=== PATIENT | male | born 1950 | race Caucasian/White ===

== ENCOUNTER → 2021-06-22 | Outpatient (CLI) | payer MEDICARE ==
--- NOTE | 2021-06-22 10:50 | US ---
EXAMINATION TYPE: US duplex aorta DATE OF EXAM: 06/22/2021 COMPARISON: NONE CLINICAL HISTORY: Z13.6 SCREENING FOR CARDIOVASCULAR DISORDER. screening AAA, smoker EXAM MEASUREMENTS: Abdominal Aorta: Proximal: 2.8 x 2.0cm Mid: 2.3 x 2.2cm Distal: 1.9 x 2.2cm Bifurcation: 1.0cm 1.1cm Moderate peripheral diffuse atherosclerotic changes on scanning the aorta that is successfully visual ized through the bifurcation IMPRESSION: No ultrasound evidence for greater than 3.0 cm AAA
== END | disposition home or self-care (01) ==
LOC: RADUSWWP 08:37
PROVIDERS: ATTEND Family Medicine
DX: I71.4 Abdominal aortic aneurysm, without rupture (principal)
CPT/HCPCS: 93979

== ENCOUNTER → 2021-06-29 | Outpatient (CLI) | payer MEDICARE ==
--- NOTE | 2021-06-29 11:19 | CT ---
EXAMINATION TYPE: CT iac wo con DATE OF EXAM: 06/29/2021 COMPARISON: None HISTORY: Right sided hearing loss CT DLP: 150.0mGycm Automated exposure control for dose reduction was used. FINDINGS: The external auditory canals are patent bilaterally the right-sided mastoid air cells are w ell-aerated. On the left the mastoid air cells demonstrate mild opacification. The middle ear ossicle s are symmetric and unremarkable. There is no evidence of suspicious surrounding soft tissue density to suggest cholesteatoma. The scutum is preserved bilaterally. The cochlea and the semicircular ca nals are symmetric and unremarkable. Vestibular aqueduct and internal carotid canal appear unremarka ble. Temporomandibular joints are maintained bilaterally. IMPRESSION: 1. Mild chronic left-sided mastoiditis.
== END | disposition home or self-care (01) ==
LOC: RADCTMAIN 10:47
PROVIDERS: ATTEND Otolaryngology
DX: H91.91 Unspecified hearing loss, right ear (principal); H70.12 Chronic mastoiditis, left ear
CPT/HCPCS: 70480

== ENCOUNTER 2023-11-12 12:54 | Emergency (ER) | payer MEDICARE ==
--- NOTE | 2023-11-12 13:19 | ED ---
General Adult HPI - General Chief complaint: Syncope Stated complaint: Near syncope Time Seen by Provider: 11/12/23 13:10 Source: patient, family, EMS, RN notes reviewed, old records reviewed Mode of arrival: EMS Limitations: no limitations - History of Present Illness Initial comments: This is a 73-year-old male presents to the emergency department stating he was at his grandsons high school graduation sitting on a hard plastic chair and he started getting lightheaded and according to his he slumped over and passed out for short period time. Once the healthcare provider on the scene got to him and aroused him a little bit he immediately became awake and he had no strokelike symptoms. Patient denies any headache patient denies numbness or weakness. Patient is chest pain difficulty breathing shortness of breath. Patient states he ate normally today. Patient denies any recent fever chills or cough or patient has any nausea vomiting diarrhea. Currently patient is asymptomatic - Related Data Home Medications Medication Instructions Recorded Confirmed Losartan/Hydrochlorothiazide 1 tab PO DAILY 10/12/21 11/12/23 [Losartan-Hctz 100-12.5 mg Tab] Omeprazole 20 mg PO DAILY 08/19/22 11/12/23 amLODIPine [Norvasc] 10 mg PO HS 08/19/22 11/12/23 Atorvastatin [Lipitor] 40 mg PO HS 08/25/22 11/12/23 Aspirin EC [Ecotrin Low Dose] 81 mg PO HS 11/12/23 11/12/23 Celecoxib [CeleBREX] 200 mg PO BID 11/12/23 11/12/23 Cholecalciferol (Vitamin D3) 50 mcg PO DAILY 11/12/23 11/12/23 [Vitamin D3 (50 Mcg = 2000 Iu)] Allergies Allergy/AdvReac Type Severity Reaction Status Date / Time No Known Allergies Allergy Verified 11/12/23 15:05 Review of Systems ROS Statement: Those systems with pertinent positive or pertinent negative responses have been documented in the HPI. ROS Other: All systems not noted in ROS Statement are negative. Past Medical History Past Medical History: COPD, Hyperlipidemia, Hypertension, Osteoarthritis (OA), Prostate Disorder Additional Past Medical History / Comment(s): sinus issues, fluid behind ear drums, History of Any Multi-Drug Resistant Organisms: None Reported Past Surgical History: Hernia Repair, Prostate Surgery, Tonsillectomy Additional Past Surgical History / Comment(s): septum surgery Past Anesthesia/Blood Transfusion Reactions: No Reported Reaction Past Psychological History: No Psychological Hx Reported Smoking Status: Current every day smoker - Past Family History Father Family Medical History: Cancer Additional Family Medical History / Comment(s): lung cancer General Exam - General Exam Comments Initial Comments: GENERAL: Patient is well-developed and well-nourished. Patient is nontoxic and well- hydrated and is in no acute distress. ENT: Neck is soft and supple. No significant lymphadenopathy is noted. Oropharynx is clear. Moist mucous membranes. Neck has full range of motion without eliciting any pain. EYES: The sclera were anicteric and conjunctiva were pink and moist. Extraocular movements were intact and pupils were equal round and reactive to light. Eyelids were unremarkable. PULMONARY: Unlabored respirations. Good breath sounds bilaterally. No audible rales rhonchi or wheezing was noted. CARDIOVASCULAR: There is a regular rate and rhythm without any murmurs gallops or rubs. ABDOMEN: Soft and nontender with normal bowel sounds. SKIN: Skin is clear with no lesions or rashes and otherwise unremarkable. NEUROLOGIC: Patient is alert and oriented x3. Cranial nerves II through XII are grossly intact. Motor and sensory are also intact. Normal speech, volume and content. Symmetrical smile. MUSCULOSKELETAL: Normal extremities with adequate strength and full range of motion. LYMPHATICS: No significant lymphadenopathy is noted PSYCHIATRIC: Normal psychiatric evaluation. Limitations: no limitations Course Vital Signs 11/12/23 11/12/23 11/12/23 13:06 14:12 14:13 Pulse Rate 72 Respiratory 18 Rate Blood Pressure 123/75 122/74 106/72 O2 Sat by Pulse 98 Oximetry Medical Decision Making - Medical Decision Making EKG is interpreted by myself read EKG shows a sinus rhythm with occasional PVC at 73 bpm parables 170 QRS is 84 QT interval 388 QTc is 415. Patient EKG shows no ST segment ovation or depression. Was pt. sent in by a medical professional or institution (, PA, MACHINE SPECIALIST, urgent care, hospital, or retirement...) When possible be specific @ -No Did you speak to anyone other than the patient for history (EMS, parent, family, police, friend...)? What history was obtained from this source @ -No Did you review nursing and triage notes (agree or disagree)? Why? @ -I reviewed and agree with nursing and triage notes Were old charts reviewed (outside hosp., previous admission, EMS record, old EKG, old radiological studies, urgent care reports/EKG's, retirement records)? Report findings @ -I compared today's EKG to an old EKG there is no acute abnormality. Differential Diagnosis (chest pain, altered mental status, abdominal pain women, abdominal pain men, vaginal bleeding, weakness, fever, dyspnea, syncope, headache, dizziness, GI bleed, back pain, seizure, CVA, palpatations, mental health, musculoskeletal)? @ -Differential Syncope: Valvular disease, hypertrophic cardiomyopathy, pulmonary embolism, tamponade, tachycardia, bradycardia, ND, hypovolemia, hemorrhage, dissection, anemia, intracranial hemorrhage, seizure, hypoglycemia, carbon monoxide poisoning, this is not meant to be an all-inclusive list. EKG interpreted by me (3pts min.). @ -As above X-rays interpreted by me (1pt min.). @ -Chest x-ray shows a left-sided diaphragmatic hernia. CT interpreted by me (1pt min.). @ -None done U/S interpreted by me (1pt. min.). @ -None done What testing was considered but not performed or refused? (CT, X-rays, U/S, labs)? Why? @ -None What meds were considered but not given or refused? Why? @ -None Did you discuss the management of the patient with other professionals (professionals i.e. , PA, MACHINE SPECIALIST, lab, RT, psych nurse, marriage and family social worker, pet groomer, teacher, gifts officer, mental health case manager)? Give summary @ -No Was smoking cessation discussed for >3mins.? @ -No Was critical care preformed (if so, how long)? @ -No Were there social determinants of health that impacted care today? How? (Homelessness, low income, unemployed, alcoholism, drug addiction, transportation, low edu. Level, literacy, decrease access to med. care, [place] [facility], rehab)? @ -No Was there de-escalation of care discussed even if they declined (Discuss DNR or withdrawal of care, Hospice)? DNR status @ -No What co-morbidities impacted this encounter? (DM, HTN, Smoking, COPD, CAD, Cancer, CVA, ARF, Chemo, Hep., AIDS, mental health diagnosis, sleep apnea, morbid obesity)? @ -None Was patient admitted / discharged? Hospital course, mention meds given and route, prescriptions, significant lab abnormalities, going to OR and other pertinent info. @ -Patient was slightly dehydrated. Patient was mildly orthostatic in the emergency department. Patient received IV fluids in the emergency department. Undiagnosed new problem with uncertain prognosis? @ -No Drug Therapy requiring intensive monitoring for toxicity (Heparin, Nitro, Insulin, Cardizem)? @ -No Were any procedures done? @ -No Diagnosis/symptom? @ -Orthostatic hypotension Acute, or Chronic, or Acute on Chronic? @ -Acute Uncomplicated (without systemic symptoms) or Complicated (systemic symptoms)? @ -Complicated Side effects of treatment? @ -No Exacerbation, Progression, or Severe Exacerbation? @ -No Poses a threat to life or bodily function? How? (Chest pain, USA, ND, pneumonia, PE, COPD, DKA, ARF, appy, cholecystitis, CVA, Diverticulitis, Homicidal, Suicidal, threat to staff... and all critical care pts) @ -No - Lab Data Result diagrams: 11/12/23 14:10 11/12/23 14:10 Lab Results 11/12/23 11/12/23 11/12/23 Range/Units 14:10 14:10 14:10 WBC 10.4 (3.8-10.6) k/uL RBC 3.64 L (4.30-5.90) m/uL Hgb 10.6 L (13.0-17.5) gm/dL Hct 31.5 L (39.0-53.0) % MCV 86.7 (80.0-100.0) fL MCH 29.3 (25.0-35.0) pg MCHC 33.7 (31.0-37.0) g/dL RDW 13.5 (11.5-15.5) % Plt Count 358 (150-450) k/uL MPV 7.9 Neutrophils % 77 % Lymphocytes % 9 % Monocytes % 11 % Eosinophils % 1 % Basophils % 0 % Neutrophils # 8.0 H (1.3-7.7) k/uL Lymphocytes # 0.9 L (1.0-4.8) k/uL Monocytes # 1.2 H (0-1.0) k/uL Eosinophils # 0.1 (0-0.7) k/uL Basophils # 0.1 (0-0.2) k/uL PT 11.2 (10.0-12.5) sec INR 1.0 (<1.2) APTT 25.5 (22.0-30.0) sec Sodium 131 L (137-145) mmol/L Potassium 4.0 (3.5-5.1) mmol/L Chloride 102 (98-107) mmol/L Carbon Dioxide 22 (22-30) mmol/L Anion Gap 7 mmol/L BUN 23 H (9-20) mg/dL Creatinine 1.08 (0.66-1.25) mg/dL Est GFR (CKD-EPI)AfAm 77 (>60 ml/min/1.73 sqM) Est GFR (CKD-EPI)NonAf 67 (>60 ml/min/1.73 sqM) Glucose 110 H (74-99) mg/dL Calcium 8.3 L (8.4-10.2) mg/dL Magnesium 1.6 (1.6-2.3) mg/dL Total Bilirubin 0.6 (0.2-1.3) mg/dL AST 17 (17-59) U/L ALT 14 (4-49) U/L Alkaline Phosphatase 115 (38-126) U/L Troponin I (0.000-0.034) ng/mL Total Protein 6.0 L (6.3-8.2) g/dL Albumin 2.9 L (3.5-5.0) g/dL 11/12/23 Range/Units 14:10 WBC (3.8-10.6) k/uL RBC (4.30-5.90) m/uL Hgb (13.0-17.5) gm/dL Hct (39.0-53.0) % MCV (80.0-100.0) fL MCH (25.0-35.0) pg MCHC (31.0-37.0) g/dL RDW (11.5-15.5) % Plt Count (150-450) k/uL MPV Neutrophils % % Lymphocytes % % Monocytes % % Eosinophils % % Basophils % % Neutrophils # (1.3-7.7) k/uL Lymphocytes # (1.0-4.8) k/uL Monocytes # (0-1.0) k/uL Eosinophils # (0-0.7) k/uL Basophils # (0-0.2) k/uL PT (10.0-12.5) sec INR (<1.2) APTT (22.0-30.0) sec Sodium (137-145) mmol/L Potassium (3.5-5.1) mmol/L Chloride (98-107) mmol/L Carbon Dioxide (22-30) mmol/L Anion Gap mmol/L BUN (9-20) mg/dL Creatinine (0.66-1.25) mg/dL Est GFR (CKD-EPI)AfAm (>60 ml/min/1.73 sqM) Est GFR (CKD-EPI)NonAf (>60 ml/min/1.73 sqM) Glucose (74-99) mg/dL Calcium (8.4-10.2) mg/dL Magnesium (1.6-2.3) mg/dL Total Bilirubin (0.2-1.3) mg/dL AST (17-59) U/L ALT (4-49) U/L Alkaline Phosphatase (38-126) U/L Troponin I <0.012 (0.000-0.034) ng/mL Total Protein (6.3-8.2) g/dL Albumin (3.5-5.0) g/dL Disposition Clinical Impression: Syncope due to orthostatic hypotension Disposition: HOME SELF-CARE Condition: Good Instructions (If sedation given, give patient instructions): Syncope (ED), Hypotension (ED) Is patient prescribed a controlled substance at d/c from ED?: No Referrals: Vinh Washburn DO [Primary Care Provider] - 1-2 days Time of Disposition: 14:49
[2023-11-12] MEDS: SODIUM CHLORIDE 0.9% 500 ML 500 ML IV STA (14:05)
[2023-11-12 14:35] LABS: Partial Thromboplastin Time 25.5 sec (22.0-30.0); Prothrombin Time 11.2 sec (10.0-12.5)
[2023-11-12 14:36] LABS: ALT 14 U/L (4-49); AST 17 U/L (17-59); African American GFR (CKD) 77 (>60 ml/min/1.73 sqM); Albumin 2.9 g/dL (3.5-5.0); Alkaline Phosphatase 115 U/L (38-126); Anion Gap 7 mmol/L; Blood Urea Nitrogen 23 mg/dL (9-20); Calcium 8.3 mg/dL (8.4-10.2); Carbon Dioxide 22 mmol/L (22-30); Chloride 102 mmol/L (98-107); Glucose 110 mg/dL (74-99); Magnesium 1.6 mg/dL (1.6-2.3); Non-African American GFR(CKD) 67 (>60 ml/min/1.73 sqM); Sodium 131 mmol/L (137-145); Total Bilirubin 0.6 mg/dL (0.2-1.3)
[2023-11-12 14:45] LABS: Basophils # (A) 0.1 k/uL (0-0.2); Basophils % (A) 0 %; Eosinophils # (A) 0.1 k/uL (0-0.7); Eosinophils % (A) 1 %; HCT 31.5 % (39.0-53.0); HGB 10.6 gm/dL (13.0-17.5); Lymphocytes # (A) 0.9 k/uL (1.0-4.8); Lymphocytes % (A) 9 %; MCH 29.3 pg (25.0-35.0); MCHC 33.7 g/dL (31.0-37.0); MCV 86.7 fL (80.0-100.0); Mean Platelet Volume 7.9; Monocytes # (A) 1.2 k/uL (0-1.0); Monocytes % (A) 11 %; Neutrophils % (A) 77 %; Platelet Count 358 k/uL (150-450); RBC 3.64 m/uL (4.30-5.90); RDW 13.5 % (11.5-15.5); WBC 10.4 k/uL (3.8-10.6)
--- NOTE | 2023-11-12 15:08 | XR ---
EXAMINATION TYPE: XR chest 2V DATE OF EXAM: 11/12/2023 2:40 PM CLINICAL INDICATION:Male, 73 years old with history of Chest Pain; H COMPARISON: Chest radiographs from 03/28/2018 TECHNIQUE: XR chest 2V Frontal and lateral views of the chest. FINDINGS: Lungs/Pleura: Opacity projecting over the right medial lung possibly representing diaphragmatic herni a. There is no evidence of pleural effusion, focal consolidation, or pneumothorax. Pulmonary vascularity: Unremarkable. Heart/mediastinum: Cardiomediastinal silhouette is unremarkable. Musculoskeletal: No acute osseous pathology. IMPRESSION: Consolidation changes of the right lower lung felt to represent diaphragm hernia. Consider cross-sect ional imaging for complete evaluation.
[2023-11-12 15:59] VITALS: BP 131/82; PULSE 78; RESP 16; TEMP 98.6
== END 2023-11-12 16:18 | disposition home or self-care (01) ==
LOC: EC 12:54
DX: I95.1 Orthostatic hypotension (principal); F17.200 Nicotine dependence, unspecified, uncomplicated
CPT/HCPCS: 36415; 71046; 80053; 83735; 84484; 85025; 85610; 85730; 93005; 99284

== ENCOUNTER → 2024-05-08 | Outpatient (CLI) | payer MEDICARE ==
--- NOTE | 2024-05-09 12:20 | CTL ---
EXAMINATION TYPE: CT Low Dose Lung DATE OF EXAM ORDERED: 05/09/2024 COMPARISON: Chest radiograph 11/12/2023 CLINICAL INDICATION: Male, 73 years old with history of Z12.2 LUNG CA SCREENING Z87.891 FORMER SMOKER ; [facility], personal hx of nicotine dependence 1/2 ppd X 55 years former smoker, hx COPD, Lung cancer scre ening, History of Smoking/tobacco use. TECHNIQUE: Low dose computed tomography scan was performed through the chest at 1 mm thick sections a nd reconstructed images in multiple planes at 1 mm and [address] DLP: 105.[address] CTDI: 2.6 mGy Automated exposure control for dose reduction was used. CT DIAGNOSTIC QUALITY: Satisfactory FINDINGS: Nodules: Left upper lobe 3 mm pulmonary nodule (series 6, image 12). Left lower lobe 3 mm pulmonary nodule (series 6, image 46). Right lower lobe 4.9 mm pulmonary nodule (series 6, image 40). Right midlung 3.7 lower pulmonary nodule (series 6, image 26). LUNGS: COPD: Severity: Minimal Fibrosis: Severity: None Lymph nodes: None Other findings: Large right anterior morganii hernia containing fat and colon. Linear atelectasis wit hin the right lower lobe. RIGHT PLEURAL SPACE: Effusion: None Calcification: None Thickening: None Pneumothorax: None LEFT PLEURAL SPACE: Effusion: None Calcification: None Thickening: None Pneumothorax: None HEART: Heart Size: Normal Coronary Calcification: Small Pericardial Effusion: Small OTHER FINDINGS: Upper abdomen: Left superior pole exophytic 3.3 cm cyst. Couple of small hypodense foci within the li blanca which are too small to characterize but likely represent cysts. Bony thorax: Multilevel degenerative disc disease. Supraclavicular region: None Other: Bilateral gynecomastia. Ectasia of the descending thoracic aorta measuring up to 3.4 cm. IMPRESSION: 1. Few pulmonary nodules measuring less than 5 mm. 2. Large right anterior morganii hernia containing colon and fat. 3. Ectasia of descending thoracic aorta measuring up to 3.[address] LUNG RAD AND CT CHEST RECOMMENDATION: Lung-Rad 2 Benign Appearance or Behavior: Continue annual sc reening with LDCT in 12 months. S Modifier (other clinically significant findings): S [facility], , 05/09/2024 12:18 PM
== END | disposition home or self-care (01) ==
LOC: RADCTMAIN 14:11
PROVIDERS: ATTEND Family Medicine
DX: Z12.2 Encounter for screening for malignant neoplasm of respiratory organs (principal); R91.8 Other nonspecific abnormal finding of lung field; I77.810 Thoracic aortic ectasia; Z87.891 Personal history of nicotine dependence
CPT/HCPCS: 71271

== ENCOUNTER → 2024-05-28 | Outpatient (CLI) | payer MEDICARE ==
--- NOTE | 2024-05-29 11:41 | XR ---
EXAMINATION TYPE: XR cervical spine comp DATE OF EXAM: 05/28/2024 3:46 PM INDICATION: Patient age:Male; 73 years old; Reason for study: M542 CERVICALGIA; [facility]. COMPARISON: None TECHNIQUE: The cervical spine was imaged in frontal, lateral, and bilateral oblique projections. FINDINGS: No acute fracture. Grade 1 anterolisthesis of C4 on C5. There are osteophytes noted throughout the ce rvical spine on the anterior and lateral aspects of the vertebral bodies. Multilevel disc space narro wing with endplate sclerosis of the lower cervical spine involving C5-C7. Multilevel facet arthropath y with at least mild bilateral neural foraminal stenosis at multilevel. Pedicles are intact. Soft ti ssues are within normal limits. IMPRESSION: 1. No fracture or dislocation. 2. Moderate degenerative disc disease changes of the cervical spine. 3. Grade 1 anterolisthesis of C4 on C5. [facility], , 05/29/2024 11:39 AM
== END | disposition home or self-care (01) ==
LOC: RADXRYALE 14:43
PROVIDERS: ATTEND Physician Assistant
DX: M50.30 Other cervical disc degeneration, unspecified cervical region (principal); M47.892 Other spondylosis, cervical region; M43.12 Spondylolisthesis, cervical region; M99.71 Connective tissue and disc stenosis of intervertebral foramina of cervical region
CPT/HCPCS: 72050